=== PATIENT | male | born 1990 | race Caucasian/White ===

== ENCOUNTER 2021-11-22 12:26 | Emergency (ER) | payer BC ==
[~2021-11-22] VITALS: Ht 175.3 cm; Wt 80.0 kg
[2021-11-22] MEDS ORDERED: SODIUM CHLORIDE 10% FOR INH 15ML VIAL NEB INH SCH (13:00)
[2021-11-22 13:27] LABS: BASOPHILS % 0.3 % (0.0-2.0); EOSINOPHILS % 0.4 % (0.0-5.0); HEMATOCRIT. 44.3 % (42.0-52.0); LYMPHOCYTES % 8.6 % (20.0-50.0); MEAN CORPUSCULAR HEMOGLOBIN 28.7 pg (28.0-32.0); MEAN PLATELET VOLUME 7.5 fl (7.4-10.4); MONOCYTES % 6.9 % (2.0-8.0); NEUTROPHILS % 83.8 % (40.0-76.0); PLATELET 230 x1000/uL (130-400); RED BLOOD CELL COUNT 5.21 mill/uL (4.7-6.1); RED CELL DISTRIBUTION WIDTH 14.2 % (11.6-14.6)
[2021-11-22 13:35] LABS: CHLORIDE 105 mEq/L (98-107)
[2021-11-22] MEDS: SODIUM CHLORIDE 0.9% 1,000 ML IV NR ×2 (14:07→15:15)
[2021-11-22 14:16] LABS: MONOTEST NEGATIVE (NEGATIVE)
[2021-11-22 14:54] VITALS: BP 129/74
[2021-11-22] MEDS ORDERED: AMOX-424 MT (15:12)
[2021-11-22] MEDS ORDERED: DEXAMETHASONE 4MG TABLET PO ONE (15:15)
[2021-11-22] MEDS ORDERED: D-ME473S50 PO (15:15)
[2021-11-24 08:07] LABS: QFT MITOGEN VALUE >10.00 IU/mL (.); QFT TB GOLD PLUS Negative (Negative)
== END 2021-11-22 15:25 | disposition home or self-care (01) ==
LOC: ER 12:26
DX: J02.0 Streptococcal pharyngitis (principal); Z88.0 Allergy status to penicillin
CPT/HCPCS: 36415; 71045; 80053; 82533; 84443; 85025; 86308; 86480; 87040; 87070; 87426; 87430; 96360; 99284; J7131; J8540

== ENCOUNTER 2024-10-26 11:33 | Emergency (ER) | payer BC ==
[~2024-10-26] VITALS: Ht 182.9 cm; Wt 100.0 kg
[~2024-10-26 11:33] MED LIST: AMOX-424 MT; D-ME473S50 PO
[2024-10-26 11:39] VITALS: O2SAT 95
[2024-10-26] MEDS ORDERED: HYDR473S60 PO (13:35)
[2024-10-26] MEDS ORDERED: P20 PO (13:35)
[2024-10-26] MEDS: PREDNISONE 20MG TABLET PO STA (13:57)
[2024-10-26 13:58] VITALS: BP 135/80; PULSE 68; RESP 22; TEMP 37.55856; O2SAT 98
== END 2024-10-26 13:59 | disposition home or self-care (01) ==
LOC: ER 11:33
DX: R05.9 Cough, unspecified (principal); R09.81 Nasal congestion; B97.4 Respiratory syncytial virus as the cause of diseases classified elsewhere; Z79.52 Long term (current) use of systemic steroids; Z98.890 Other specified postprocedural states; Z20.822 Contact with and (suspected) exposure to COVID-19; Z88.0 Allergy status to penicillin
CPT/HCPCS: 99284; 71045; 87426; 87420; 87804 ×2; J7512